=== PATIENT | female | born 1960 | race Caucasian/White ===

== ENCOUNTER 2020-08-23 11:30 | Emergency (ER) | payer MEDICARE, MEDICAID | END 2020-08-23 12:02 | disposition home or self-care (01) | LOC: NAV ERS 11:30 | DX: I10 Essential (primary) hypertension (principal); E78.5 Hyperlipidemia, unspecified; E03.9 Hypothyroidism, unspecified; E11.9 Type 2 diabetes mellitus without complications | CPT/HCPCS: 36416; 99281 ==